=== PATIENT | female | born 1975 | race African-American/Black ===

== ENCOUNTER 2019-08-19 11:01 | Emergency (ER) | payer MEDICAID ==
[~2019-08-19] VITALS: Ht 170.2 cm; Wt 117.9 kg
[2019-08-19 11:16] VITALS: BP 141/78
[2019-08-19] MEDS ORDERED: IBUPROFEN 800 MG TAB PO ONE (11:45)
[2019-08-19] MEDS ORDERED: cefTRIAXone SOD 1,000 MG VL IM ONE (11:45)
== END 2019-08-19 12:17 | disposition home or self-care (01) ==
LOC: ER 11:01
DX: H66.91 Otitis media, unspecified, right ear (principal); F17.210 Nicotine dependence, cigarettes, uncomplicated
CPT/HCPCS: 96372; 99283; J0696

== ENCOUNTER 2022-01-12 10:14 | Emergency (ER) | payer MEDICAID, OTHER ==
[~2022-01-12] VITALS: Ht 172.7 cm; Wt 118.1 kg
[2022-01-12 10:30] VITALS: BP 168/92
[2022-01-12] MEDS ORDERED: KETOROLAC TROMETH 60MG/2ML VIAL IM ONE (13:45)
[2022-01-12] MEDS ORDERED: IBUP800T26 PO (16:39)
[2022-01-12] MEDS ORDERED: HYDR-4902 PO (16:39)
== END 2022-01-12 16:48 | disposition home or self-care (01) ==
LOC: ER 10:14
DX: S20.229A Contusion of unspecified back wall of thorax, initial encounter (principal); F17.210 Nicotine dependence, cigarettes, uncomplicated; W20.8XXA Other cause of strike by thrown, projected or falling object, initial encounter; Y93.89 Activity, other specified; Y92.89 Other specified places as the place of occurrence of the external cause; Y99.8 Other external cause status
CPT/HCPCS: 72070; 81025; 96372; 99283; J1885

== ENCOUNTER 2024-02-11 08:16 | Inpatient (IN) | payer SELFPAY ==
[~2024-02-11] VITALS: Ht 170.2 cm; Wt 120.0 kg
[~2024-02-11 08:16] MED LIST: HYDR-4902 PO; IBUP-1455 PO
--- NOTE | 2024-02-11 08:22 | ECG ---
[facility] Test Date: 2024-02-11 Test Time: 08:21:16 Pat Name: DOMENICO PACKER Department: ER Room: [address] [place] [address] Gender: F [employer] Glazier: VENUS : 1975 Requested By: JENNY JENKINS Order Number: [id number] Reading MD: Juni Torres Measurements Intervals [place] Rate: 103 P: 54 NV: 136 QRS: 99 QRSD: 85 T: 42 QT: 341 QTc: 447 Interpretive Statements Sinus tachycardia Borderline right axis deviation Low voltage, precordial leads Borderline T abnormalities, anterior leads Baseline wander in lead(s) II Electronically Signed On 02-11-2024 14:19:39 PST by Juni Torres Please click the below link to view image of tracing.
[2024-02-11] MEDS: ACETAMINOPHEN 500 MG TAB or CAP PO ONE (08:42)
[2024-02-11 08:54] LABS: Basophils # (auto) 0 10 ^3/uL (0-0.2); Basophils % (auto) 0.3 % (0.0-2.0); Eosinophils # (auto) 0 10 ^3/uL (0-0.8); Eosinophils % (auto) 0.4 % (0.0-7.0); Hematocrit 42.2 % (36.0-46.0); Hemoglobin 14.2 g/dL (12.2-16.2); Lymphocytes % (auto) 12.2 % (10.0-50.0); Mean Corpuscular Hemoglobin 32.3 pg (28.0-32.0); Mean Corpuscular Hgb Conc. 33.5 g/dL (32.0-36.0); Mean Corpuscular Volume 96.4 fL (80.0-100.0); Monocytes # (auto) 0.7 10 ^3/uL (0-1.3); Monocytes % (auto) 8.7 % (0.0-12.0); Neutrophils # (auto) 6.1 10 ^3/uL (1.6-8.6); Neutrophils % (auto) 78.4 % (37.0-80.0); Platelet Count (auto) 321 10^3/uL (140-450); Red Blood Cells 4.38 10^6/uL (4.0-5.20); Red Cell Distribution Width 13.1 % (11.8-14.3); White Blood Cell 7.8 10^3/uL (4.4-10.8)
[2024-02-11 09:11] LABS: Alanine Aminotransferase 17 U/L (7-40); Albumin 4.7 g/dL (3.2-4.8); Alkaline Phosphatase 84 U/L (46-116); Anion Gap 6 (5-15); Aspartate Aminotransferase 15 U/L (13-40); BUN/Creatinine Ratio 6.7 (10.0-20.0); Bilirubin, Total 0.7 mg/dL (0.2-1.0); Blood Urea Nitrogen 6 mg/dL (9-23); Calcium 9.8 mg/dL (8.7-10.4); Carbon Dioxide 25 mmol/L (20-31); Chloride 105 mmol/L (98-107); Glucose 122 mg/dL (74-106); Potassium 4.1 mmol/L (3.5-5.1); Sodium 136 mmol/L (136-145); Total Protein 7.6 g/dL (5.7-8.2)
--- NOTE | 2024-02-11 11:11 | DVH ---
CHEST RADIOGRAPH Indication: sob Technique: Single frontal view of the chest was obtained Comparison: None FINDINGS: Lines and Tubes: None Lungs: No focal consolidation. Pleura: No effusion. No pneumothorax. Cardiomediastinal contours: Unremarkable Bones: No acute osseous abnormality. IMPRESSION: 1. No acute cardiopulmonary disease.
--- NOTE | 2024-02-11 11:27 | ED.PDOC ---
History of Present Illness HPI Comments 48 y/o F, with a Hx of morbid obesity and tobacco use, presents with c/o chest pain, shortness of breath, and congestion, today. Patient endorses on sudden and unprovoked onset of symptoms, last night, with 1x incident of similar episode prior 1x week ago. She endorses no recent stressors, strenuous activities, sick contact, or additional relevant or pertinent Hx. She denies having any palpitations, cough, fever, chills, nausea, vomiting, or other associated symptoms or modifiers at this time. Chief Complaint: Chest Pain Time Seen by MD: 09:40 Primary Care Provider: NONE Reviewed Notes: Nurses Notes, Medications, Allergies Allergies: Coded Allergies: NO KNOWN ALLERGIES (Unverified , 04/20/14) Home Meds Active Scripts Hydrocodone-Acetaminophen (Hydrocodone Bitartrate/AC 5-325 mg) 1 Tab Tab, 1 TAB PO QID, #15 TAB Prov:RODRIGO LUKE PAC 01/12/22 Ibuprofen Micronized (Ibuprofen) 800 Mg Tab, 800 MG PO TID, #30 TAB Prov:RODRIGO LUKE PAC 01/12/22 Information Source: Patient Mode of Arrival: Ambulatory Severity: Moderate Timing: Hours Duration: Since onset Prehospital treatment: None Past Medical History Past Medical History (Other): morbid obesity 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 Pertinent SOFTWARE PROGRAMMER History Family History Family History: Unknown Social History Smoker: Cigarettes Alcohol: Denies ETOH Use Drugs: Denies Drug Use Lives In: Home EENTM: reports: others (congestion) Respiratory: reports: shortness of breath Cardiovascular: reports: chest pain All Other Systems: Reviewed and Negative (negative unless otherwise stated above or in HPI) Physical Exam General Appearance: Moderate Distress HEENT: Normal ENT Inspection, Pharynx Normal, TMs Normal Neck: Full Range of Motion, Non-Tender, Normal, Normal Inspection Respiratory: Accessory Muscle Use, Chest Non-Tender, Other (Coarse breath sounds) Cardiovascular: No Edema, No JVD, No Murmur, No Gallop, Normal Peripheral Pulses, Regular Rate/Rhythm Breast Exam: Deferred Gastrointestinal: No Organomegaly, Non Tender, No Pulsatile Mass, Normal Bowel Sounds, Soft Genitalia: Deferred Pelvic: Deferred Rectal: Deferred Extremities: No calf tenderness, Normal capillary refill, Normal inspection, Normal range of motion, Non-tender, No pedal edema Musculoskeletal : Apperance: Normal Neurologic: Alert, rate clerk passenger II-XII nml as Tested, No Motor Deficits, Normal Affect, Normal Mood, No Sensory Deficits Cerebellar Function: NOT DONE Reflexes: NOT DONE Skin: Dry, Normal Color, Warm Peripheral Pulses: 3+ Radial (R), 3+ Radial (L) Lymphatic: No Adenopathy Was a procedure done? Was a procedure done?: No EKG EKG : Pulse Rate (adult): 103 [place]: Normal Cardiac Rhythm: ST Block: None Hypertrophy: None ST: Normal Differential Dx Considerations may include: [place], PE, PNA, ACS, costochondritis, pericarditis, gastritis, viral syndrome, URI, bronchitis, covid19 X-Ray, Labs, Meds, VS Vital Signs Date Time Temp Pulse Resp B/P (MAP) Pulse Ox O2 Delivery O2 Flow Rate FiO2 02/11/24 11:36 99.5 02/11/24 11:28 99.5 92 14 137/88 (104) 90 99.5 02/11/24 11:27 103 02/11/24 08:42 101.0 02/11/24 08:21 103 02/11/24 08:17 101.0 85 24 141/84 (103) 95 Lab Test 02/11/24 10:00 02/11/24 08:29 Range/Units Troponin I High Sensitivity < 3 L < 3 L </=34 ng/L White Blood Count 7.8 4.4-10.8 10^3/uL Red Blood Count 4.38 4.0-5.20 10^6/uL Hemoglobin 14.2 12.2-16.2 g/dL Hematocrit 42.2 36.0-46.0 % Mean Corpuscular Volume 96.4 80.0-100.0 fL Mean Corpuscular Hemoglobin 32.3 H 28.0-32.0 pg Mean Corpuscular Hemoglobin Concent 33.5 32.0-36.0 g/dL Red Cell Distribution Width 13.1 11.8-14.3 % Platelet Count 321 140-450 10^3/uL Mean Platelet Volume 7.7 6.9-10.8 fL Neutrophils (%) (Auto) 78.4 37.0-80.0 % Lymphocytes (%) (Auto) 12.2 10.0-50.0 % Monocytes (%) (Auto) 8.7 0.0-12.0 % Eosinophils (%) (Auto) 0.4 0.0-7.0 % Basophils (%) (Auto) 0.3 0.0-2.0 % Neutrophils # (Auto) 6.1 1.6-8.6 10 ^3/uL Lymphocytes # (Auto) 1.0 0.4-5.4 10 ^3/uL Monocytes # (Auto) 0.7 0-1.3 10 ^3/uL Eosinophils # (Auto) 0 0-0.8 10 ^3/uL Basophils # (Auto) 0 0-0.2 10 ^3/uL Nucleated Red Blood Cells 0.0 % Sodium Level 136 136-145 mmol/L Potassium Level 4.1 3.5-5.1 mmol/L Chloride Level 105 98-107 mmol/L Carbon Dioxide Level 25 20-31 mmol/L Anion Gap 6 5-15 Blood Urea Nitrogen 6 L 9-23 mg/dL Creatinine 0.89 0.550-1.02 mg/dL Glomerular Filtration Rate Calc 80 >90 mL/min BUN/Creatinine Ratio 6.7 L 10.0-20.0 Serum Glucose 122 H 74-106 mg/dL Calcium Level 9.8 8.7-10.4 mg/dL Total Bilirubin 0.7 0.2-1.0 mg/dL Aspartate Amino Transferase (AST) 15 13-40 U/L Alanine Aminotransferase (ALT) 17 7-40 U/L Alkaline Phosphatase 84 46-116 U/L Total Protein 7.6 5.7-8.2 g/dL Albumin 4.7 3.2-4.8 g/dL Current Medications Medications (Trade) Dose Ordered Sig/Brody Route Start Time Stop Time Status Last Admin Acetaminophen (Tylenol Tablet Or Capsule) 1,000 mg ONCE ONCE PO 02/11/24 08:30 02/11/24 08:31 DC 02/11/24 08:42 Patient alert. Complaining of shortness a breath chest pain. Had to place her on oxygen. Cardiac marker within normal limits. Has fever. Chest x-ray reviewed does not show any acute process possibly early pneumonia. EKG reviewed does not show any acute changes. Possible pneumonitis. Was given Tylenol. Establish intravenous access. Was given Rocephin. Was given azithromycin. Was given steroid. Revision previous visit. Explained to the patient. Continue cardiac monitoring. Time of 1ST Reevaluation: 10:10 Reevaluation 1ST: Unchanged Patient Education/Counseling: Diagnosis, Treatment Family Education/Counseling: No Family Present Additional Information I reviewed the following notes from patient's past medical encounters: ED physician documentation on 01/12/2022 The following tests were ordered, and results were reviewed by me: CXR, EKG, troponin, CMP, CBC I reviewed and agreed with the following test results read by other providers: CXR I discussed treatment and results with medical personnel Departure 1 Departure Time of Disposition: 12:43 Impression: Primary Impression: Acute respiratory failure Qualified Codes: J96.01 - Acute respiratory failure with hypoxia Additional Impression: Pneumonitis Disposition: ADMITTED INPATIENT Admit to: Med Surg Condition: Guarded Critical Care Note Critical Care Time?: Yes (90 min-critical care time only) Stability Stability form required: No Heart Score Heart Score: Heart Score Response (Comments) Value History Slightly Suspicious 0 EKG Normal 0 Age 45-64 1 Risk Factors 1 or 2 risk factors 1 Troponin Normal limit 0 Total 2 I personally scribed for JENNY JENKINS MD ([email or web address]) on 02/11/24 at 11:27. Electronically submitted by Rich Marcelino ([email or web address]). JENNY JENKINS MD Feb 11, 2024 11:27
[2024-02-11] MEDS ORDERED: HYDROcodone-ACET 5/325MG TAB PO PRN (13:00)
[2024-02-11] MEDS ORDERED: hydrALAZINE HCL 20 MG/ML VL IV PRN (13:00)
[2024-02-11] MEDS ORDERED: MORPHINE SULFATE INJ 2 MG/ml SYRG IV PRN ×2 (13:00)
[2024-02-11] MEDS ORDERED: ACETAMINOPHEN 325 MG TAB PO PRN (13:00)
[2024-02-11] MEDS ORDERED: ONDANSETRON HCL 4 MG/2 ML VIAL IV PRN (13:00)
[2024-02-11] MEDS ORDERED: NITROGLYCERIN 0.4 MG SL TAB SL PRN (13:00)
--- NOTE | 2024-02-11 13:05 | DVHHP2 ---
History of Present Illness Reason for Visit: Chest pain History of Present Illness This 48-year-old female with past medical history of tobacco use and morbid obesity, presents in the ED with a chief complaint of chest pain. The patient reports chest pain is described as pressure pain non provoked, radiates to right arm, worse when taking deep breath and on palpation, and is associated with shortness of breath, cough, and congestion started last night as she was laying down. The patient reports recently recovered from flu-like symptoms a week ago. Denies history of CAD or MS. The patient states familiar history maternal grandparents with CAD. Past Medical History As stated in HPI Past Surgical History Family History Reviewed, non-contributory to the management of this case. Past Social History The patient lives at home, denies smoking, alcohol or illicit drugs abuse. Review of Systems Constitutional: Yes: Malaise; No: Fever, Chills, Sweats, Weakness, Other Eyes: No: Pain, Vision change, Conjunctivae inflammation, Eyelid inflammation, Other, Redness ENT: No: Ear pain, Ear discharge, Nose pain, Nose discharge, Nose congestion, Mouth pain, Mouth swelling, Throat pain, Throat swelling, Other Respiratory: Cough, Shortness of breath; No: Dry, SOB with excertion, Wheezing, Hemoptysis, Pleuritic Pain, Sputum, Wheezing, Other Cardiovascular: Chest Pain; No: Palpitations, Orthopnea, Paroxysmal Noc. Dyspnea, Edema, Lt Headedness, Other Gastrointestinal: No: Nausea, Vomiting, Abdominal Pain, Diarrhea, Constipation, Melena, Hematochezia, Other Genitourinary: No Dysuria, No Frequency, No Incontinence, No Hematuria, No Retention, No Other Musculoskeletal: No: other, neck pain, shoulder pain, arm pain, back pain, hand pain, leg pain, foot pain Skin: No: Rash, Lesions, Jaundice, Bruising, Other Neurological: No: Weakness, Numbness, Incoordination, Change in speech, Confusion, Seizures, Other Allergies: Coded Allergies: NO KNOWN ALLERGIES (Unverified , 04/20/14) Exam Vital Signs Vital Signs Date Time Temp Pulse Resp B/P (MAP) Pulse Ox O2 Delivery O2 Flow Rate FiO2 02/11/24 11:36 99.5 02/11/24 11:28 92 14 137/88 (104) 90 General Appearance: Alert, Oriented X3, Cooperative, mild distress HEENT: Atraumatic, PERRLA, EOMI, Mucous membr. moist/pink Respiratory: Clear to auscultation, Normal air movement Cardiovascular: Regular rate, Normal S1, Normal S2, No murmurs Abdominal: Normal bowel sounds, Soft, No tenderness, No hepatospenomegaly Extremities: No clubbing, No cyanosis, No edema, Normal pulses, No tenderness /swelling Skin: No rashes, No breakdown, No significant lesion Neuro: Normal gait, Normal speech, Normal tone Psych/Mental Status: Mental status NL Labs/Xrays Labs Test 02/11/24 10:00 02/11/24 08:29 Range/Units Troponin I High Sensitivity < 3 L </=34 ng/L White Blood Count 7.8 4.4-10.8 10^3/uL Red Blood Count 4.38 4.0-5.20 10^6/uL Hemoglobin 14.2 12.2-16.2 g/dL Hematocrit 42.2 36.0-46.0 % Mean Corpuscular Volume 96.4 80.0-100.0 fL Mean Corpuscular Hemoglobin 32.3 H 28.0-32.0 pg Mean Corpuscular Hemoglobin Concent 33.5 32.0-36.0 g/dL Red Cell Distribution Width 13.1 11.8-14.3 % Platelet Count 321 140-450 10^3/uL Mean Platelet Volume 7.7 6.9-10.8 fL Neutrophils (%) (Auto) 78.4 37.0-80.0 % Lymphocytes (%) (Auto) 12.2 10.0-50.0 % Monocytes (%) (Auto) 8.7 0.0-12.0 % Eosinophils (%) (Auto) 0.4 0.0-7.0 % Basophils (%) (Auto) 0.3 0.0-2.0 % Neutrophils # (Auto) 6.1 1.6-8.6 10 ^3/uL Lymphocytes # (Auto) 1.0 0.4-5.4 10 ^3/uL Monocytes # (Auto) 0.7 0-1.3 10 ^3/uL Eosinophils # (Auto) 0 0-0.8 10 ^3/uL Basophils # (Auto) 0 0-0.2 10 ^3/uL Nucleated Red Blood Cells 0.0 % Sodium Level 136 136-145 mmol/L Potassium Level 4.1 3.5-5.1 mmol/L Chloride Level 105 98-107 mmol/L Carbon Dioxide Level 25 20-31 mmol/L Anion Gap 6 5-15 Blood Urea Nitrogen 6 L 9-23 mg/dL Creatinine 0.89 0.550-1.02 mg/dL Glomerular Filtration Rate Calc 80 >90 mL/min BUN/Creatinine Ratio 6.7 L 10.0-20.0 Serum Glucose 122 H 74-106 mg/dL Calcium Level 9.8 8.7-10.4 mg/dL Total Bilirubin 0.7 0.2-1.0 mg/dL Aspartate Amino Transferase (AST) 15 13-40 U/L Alanine Aminotransferase (ALT) 17 7-40 U/L Alkaline Phosphatase 84 46-116 U/L Total Protein 7.6 5.7-8.2 g/dL Albumin 4.7 3.2-4.8 g/dL PROCEDURE(s): CXRP - CHEST PORTABLE REASON: sob ORDER NUMBER(s): [id number], ACCESSION NUMBER(s): [id number] CHEST RADIOGRAPH Indication: sob Technique: Single frontal view of the chest was obtained Comparison: None FINDINGS: Lines and Tubes: None Lungs: No focal consolidation. Pleura: No effusion. No pneumothorax. Cardiomediastinal contours: Unremarkable Bones: No acute osseous abnormality. IMPRESSION: 1. No acute cardiopulmonary disease. Assessment/Plan Assessment/Plan # Chest pain to rule out ACS Admit to telemetry unit Chest pain protocol Repeat EKG in a.m. Cardiology consult Echo asa, statins # morbidly obese Check lipid panel, A1c, TSH Lifestyle modification counseled with regular exercise, diet, and weight loss # positive SIRS # possible viral infection IV fluid Check Influenza a and B Check for covid Pancultures Monitor # Ex tobacco use Reports quit three months ago DVT prophylaxis Medical plan discussed with patient Plan discussed with: Patient My Orders Orders - DON MONTAÑO NURSE STAFF [facility] Procedure Category Date Status Time Admit ADMIT 02/11/24 Transmitted 12:48 Code Status CODE 02/11/24 Transmitted 12:48 Hydrocodone-Acet PHA 02/11/24 Logged 5/325mg Tab ([place] 13:00 Ondansetron Hcl PHA 02/11/24 Logged (Zofran) 13:00 Enoxaparin Sodium PHA 02/12/24 Logged (Lovenox) 10:00 Complete Blood Count LAB 02/12/24 Verified 04:00 Comprehensive LAB 02/12/24 Verified Metabolic Panel 04:00 Cardiac DIET 02/11/24 Transmitted Diet-2gna,Lofat,Lochol Lunch Echo 2d Mode Cardiac US 02/11/24 Logged DOP 12:48 Condition: Fair [facility] 02/11/24 In Process 12:48 Acetaminophen Tablet PHA 02/11/24 Logged (Tylenol Tablet) 13:00 Morphine Sulfate PHA 02/11/24 Logged Injection 13:00 Nitroglycerin PHA 02/11/24 Logged Sublingual (Ntrostat 13:00 Morphine Sulfate PHA 02/11/24 Logged Injection 13:00 Stat Ekg For Chest [facility] 02/11/24 In Process Pain 12:48 Notify Of Changes [facility] 02/11/24 In Process From Base 12:48 Skin Tanner For [facility] 02/11/24 In Process 24 Hours 12:48 Emergency Dysrhythmia [facility] 02/11/24 In Process Protocol 12:48 Rhythm Strips Once [facility] 02/11/24 In Process Every Shift 12:48 Oxygen By Nasal RT 02/11/24 Transmitted Cannula 12:48 * Cardiology Consult CONS 02/11/24 Transmitted 12:48 Electrocardigram EKG 02/12/24 Logged 04:00 Aspirin Tablet PHA 02/12/24 Logged 10:00 Aspirin Tablet PHA 02/11/24 Logged 13:00 Atorvastatin (Lipitor) PHA 02/11/24 Logged 22:00 Lipid Panel LAB 02/11/24 Logged 12:48 Hemoglobin A1c LAB 02/11/24 Logged 12:48 Thyroid Stimulating LAB 02/11/24 Logged Hormone 12:48 Urinalysis LAB 02/11/24 Logged 12:48 Erythrocyte LAB 02/11/24 Logged Sedimentation Rate 12:48 Rapid Influenza A&B LAB 02/11/24 Logged 12:55 Date of Service: Feb 11, 2024 Billing Provider: DON MONTAÑO Common Visit Codes: [id number] INP/OBS CARE (HIGH) DON MONTAÑO NURSE ST[facility]FF [facility] Feb 11, 2024 13:05
[2024-02-11 13:24] LABS: Triglycerides 132 mg/dL (< 150)
[2024-02-11 13:25] LABS: LDL Cholesterol 71 mg/dL (< 100)
[2024-02-11 13:26] LABS: Cholesterol 141 mg/dL (< 200); HDL Cholesterol 41 mg/dL (40-59)
[2024-02-11 13:52] LABS: Erythrocyte Sedimentation Rate 11 mm/hr (0-20)
[2024-02-11] MEDS: ASPirin 325 MG TAB PO ONE (15:16)
[2024-02-11] MEDS: SODIUM CHLORIDE 0.9% 1,000 ML IV SCH (16:05)
[2024-02-11 23:25] LABS: Urine Bacteria FEW /hpf (None Seen); Urine Blood Negative /uL (Negative); Urine Clarity Turbid (Clear); Urine Color Yellow (Yellow); Urine Mucus FEW (None Seen); Urine Protein, UAD Negative (Negative); Urine Specific Gravity 1.019 (1.001-1.035); Urine Urobilinogen Normal (Negative); Urine WBC 2 /hpf (0 - 5); Urine pH 5.5 (5.0-9.0)
[2024-02-11 23:31] VITALS: BP 126/67; PULSE 82; RESP 17; TEMP 98.9; O2SAT 95
[2024-02-11 23:58] LABS: COVID19 ANTIGEN SOFIA FIA NEGATIVE (NEGATIVE)
[2024-02-12] VITALS (7 sets, daily range): BP systolic 102–131; BP diastolic 62–81; PULSE 78–89; RESP 15–17; TEMP 97.7–98.9; O2SAT 95–99
[2024-02-12] LABS: Rapid Influenza B Negative (Negative)
[2024-02-12 00:07] LABS: Rapid Influenza A Positive (Negative)
[2024-02-12] MEDS: ATORVASTATIN 20 MG TAB PO SCH (00:08)
[2024-02-12] MEDS: ENOXAPARIN SOD 40 MG/0.4 ML SYRINGE SC SCH (09:14)
[2024-02-12] MEDS: ASPirin 81 mg TAB PO SCH (09:14)
[2024-02-12 09:16] LABS: Basophils # (auto) 0 10 ^3/uL (0-0.2); Basophils % (auto) 0.6 % (0.0-2.0); Eosinophils # (auto) 0.1 10 ^3/uL (0-0.8); Eosinophils % (auto) 1.3 % (0.0-7.0); Hematocrit 39.3 % (36.0-46.0); Lymphocytes # (auto) 2.1 10 ^3/uL (0.4-5.4); Lymphocytes % (auto) 41.4 % (10.0-50.0); Mean Corpuscular Hemoglobin 32.1 pg (28.0-32.0); Mean Corpuscular Hgb Conc. 33.2 g/dL (32.0-36.0); Mean Corpuscular Volume 96.6 fL (80.0-100.0); Monocytes # (auto) 0.6 10 ^3/uL (0-1.3); Monocytes % (auto) 10.9 % (0.0-12.0); Neutrophils # (auto) 2.4 10 ^3/uL (1.6-8.6); Neutrophils % (auto) 45.8 % (37.0-80.0); Nucleated Red Blood Cells % 0.1 %; Platelet Count (auto) 296 10^3/uL (140-450); Red Blood Cells 4.07 10^6/uL (4.0-5.20); Red Cell Distribution Width 13.2 % (11.8-14.3); White Blood Cell 5.2 10^3/uL (4.4-10.8)
[2024-02-12 09:24] LABS: Alanine Aminotransferase 17 U/L (7-40); Albumin 4.1 g/dL (3.2-4.8); Alkaline Phosphatase 68 U/L (46-116); Anion Gap 6 (5-15); Aspartate Aminotransferase 16 U/L (13-40); BUN/Creatinine Ratio 12.5 (10.0-20.0); Bilirubin, Total 0.4 mg/dL (0.2-1.0); Blood Urea Nitrogen 10 mg/dL (9-23); Calcium 9.3 mg/dL (8.7-10.4); Carbon Dioxide 26 mmol/L (20-31); Chloride 107 mmol/L (98-107); Potassium 3.9 mmol/L (3.5-5.1); Sodium 139 mmol/L (136-145); Total Protein 6.6 g/dL (5.7-8.2)
[2024-02-12 09:35] LABS: Glucose 166 mg/dL (74-106)
[2024-02-12 10:05] LABS: Hepatitis A Total Antibody Positive (Negative)
[2024-02-12 10:17] LABS: Hepatitis A Ab IgM Negative; Hepatitis B Core IgM Negative (Negative); Hepatitis B Surface Antigen Negative (Negative)
--- NOTE | 2024-02-12 12:07 | DVHSR ---
APPROVED REPORT EXAM: Two-dimensional and M-mode echocardiogram with Doppler and color Doppler. Blood Pressure: 114/71 mmHg INDICATION Chest Pain to rule out ACS RISK FACTORS Height: 67, Weight: 264 DIMENSIONS LVDd4.7 (3.8-5.7cm)LA (2D)4.5 (1.9-4.0cm)Aortic Root4.0 (2.0-3.7cm) LVDs3.4 (2.5-4.0cm)LA (MM) (1.9-4.0cm)Aortic Cusp Exc (1.5-2.0cm) EF (%) 55.0 (55-70%)Rt. Atrium (1.9-4.0cm)Asc. Aorta cm IVSd1.3 (0.7-1.1cm)RV (D) (1.8-2.4cm) PWd1.3 (0.7-1.1cm) Mitral Valve MitralMitral Stenosis E wave0.61m/sMV Mean GR.mmHg A wave0.67m/sMV Peak GR.mmHg E/A ratio0.92D MVAcm2 DECEL [id number] 1/2 [id number] IVRTmsDop MVA4.77cm2 Aortic Valve Aortic ValveAortic Stenosis V10.77m/Bernabe Mean GR.3mmHg V21.10m/Bernabe Peak GR.5mmHg LVOT Diameter2.4 (1.8-2.4cm)Doppler AVA3.17cm2 Pulmonic Valve V20.72m/s Tricuspid Valve TR Velocity2.37m/s [id number] LEFT VENTRICLE Normal left ventricular size and systolic function. There is mild concentric left ventricular hypert rophy. Ejection fraction is normal and is estimated at 60-65%. There is no regional wall motion abn ormalities. Diastolic function appears to be preserved. E to E prime ratio is in the normal range. RIGHT VENTRICLE Normal right ventricular size and systolic function. ATRIA Both atria are of normal size. MITRAL VALVE Normal structure and function. PULMONIC VALVE Normal structure and function. TRICUSPID VALVE Normal structure and function. PA systolic pressure is not adequately estimated. AORTIC VALVE Normal structure and function. Valve is trileaflet in morphology. GREAT VESSELS Normal aortic root size and proximal ascending aorta. PERICARDIAL EFFUSION No significant effusion. IVC is of normal size and collapses normally with inspiration. Conclusion Normal biventricular size and systolic function. Ejection fraction is estimated at 60-65%. There is mild concentric left ventricular hypertrophy. No significant valvular disease. PA systolic pressure isn't adequately estimated. No pericardial effusion.
--- NOTE | 2024-02-12 12:13 | DVHINCON2 ---
Date Seen: Feb 12, 2024 Referring Physician JOSH Turner Reason for Consultation Chest pain, rule out ACS History of Present Illness This is a 48-year-old female patient who presents to the emergency room with chief complaint of chest pain, generalized weakness and dry cough for two days. The patient came to the emergency room for further evaluation. She describes the chest pain as provoked by coughing, pressure-like and sharp in nature, intermittent, left-sided and nonradiating. She denies any associated symptoms. Initial twelve lead electrocardiogram reveals sinus tachycardia without any significant ST segment changes. Initial serial troponin levels have been nega tive. Significant past medical history includes tobacco use and obesity. The patient denies taking any medications at home and denies all other previous past medical history. She also denies any family history of cardiac problems. Of note, the patient has tested positive for influenza type A. Past Medical History Past medical history reviewed. No other significant than mentioned above. Past Surgical History section x3 Family History: Patient reports no known family medical history. Family History Family history reviewed. Social History Patient has a 30 pack-year history, quit smoking approximately three months ago Patient denies any illicit drug use Patient denies any alcohol use Allergies: Coded Allergies: NO KNOWN ALLERGIES (Unverified , 04/20/14) Home Meds Active Scripts Hydrocodone-Acetaminophen (Hydrocodone Bitartrate/AC 5-325 mg) 1 Tab Tab, 1 TAB PO QID, #15 TAB Prov:RODRIGO LUKE PAC 01/12/22 Ibuprofen Micronized (Ibuprofen) 800 Mg Tab, 800 MG PO TID, #30 TAB Prov:RODRIGO LUKE PAC 01/12/22 Current Medications Current Medications Medications (Trade) Dose Ordered Sig/Brody Route PRN Reason Start Time Stop Time Status Last Admin Acetaminophen/ Hydrocodone Bitart ([place] 5/325MG Tab) 1 tab Q4HP PRN PO MODERATE PAIN (4-6 PAIN SCALE) 02/11/24 13:00 Ondansetron HCl (Zofran) 4 mg Q4HP PRN IV NAUSEA / VOMITING 02/11/24 13:00 Enoxaparin Sodium (Lovenox) 40 mg DAILY SC 02/12/24 10:00 02/12/24 09:14 Acetaminophen (Tylenol Tablet) 650 mg Q6HP PRN PO PAIN SCALE 1-3 OR TEMP>100.4 02/11/24 13:00 Morphine Sulfate 2 mg Q4HPRN PRN IV SEVERE PAIN (7-10 PAIN SCALE) 02/11/24 13:00 Nitroglycerin (Ntrostat Sublingual) 0.4 mg Q5MINP PRN SL FOR CHEST PAIN 02/11/24 13:00 Morphine Sulfate 2 mg Q30M PRN IV FOR CHEST PAIN 02/11/24 13:00 Aspirin 81 mg DAILY PO 02/12/24 10:00 02/12/24 09:14 Atorvastatin Calcium (Lipitor) 40 mg HS PO 02/11/24 22:00 02/12/24 00:08 Sodium Chloride 1,000 ml @ 100 mls/hr Q10H IV 02/11/24 13:00 02/12/24 09:13 Hydralazine HCl (Apresoline Injection) 10 mg Q6HP PRN IV SBP>150 02/11/24 13:00 Review of Systems Constitutional: Generalized weakness Ears, Nose, & Throat: No symptom reported Eyes: No symptom reported Neurological: No symptoms reported Pulmonary/Respiratory: Cough Cardiovascular: Chest pain Gastrointestinal: No symptom reported Genitourinary: No symptom reported Musculoskeletal: No symptom reported Skin: No symptom reported Psychiatric: No symptom reported Endocrine: No symptom reported Hematologic/Lymphatic: No symptom reported Vital Signs Vital Signs Date Time Temp Pulse Resp B/P (MAP) Pulse Ox O2 Delivery O2 Flow Rate FiO2 02/12/24 09:00 98.7 86 17 131/81 (98) 99 98.7 02/12/24 00:59 Room Air* 0 21 Physical Exam General Appearance: Cooperative. Morbidly obese Pulmonary/Respiratory: Clear, bilateral breaths sounds. Cardiovascular/Chest: Regular rate and rhythm. Peripheral Pulses: 2+ Radial (R). 2+ Radial (L). 2+ Pedal (R). 2+ Pedal (L) Abdominal Exam: Normal bowel sounds. Ankle Exam: Negative ankle edema Lower extremities: Negative lower extremity edema Neuro/Mental Status: A/OX4, coherent. Thoughts/Psych: Normal thought pattern. Appropriate mood and affect. Good judgment and insight. Appearance: No acute distress. Skin Exam: Normal inspection. Normal color. Warm and dry. Labs/Diagnostic Data Labs Test 02/12/24 08:14 02/11/24 23:13 02/11/24 23:12 02/11/24 23:00 Range/Units White Blood Count 5.2 # 4.4-10.8 10^3/uL Red Blood Count 4.07 4.0-5.20 10^6/uL Hemoglobin 13.0 12.2-16.2 g/dL Hematocrit 39.3 36.0-46.0 % Mean Corpuscular Volume 96.6 80.0-100.0 fL Mean Corpuscular Hemoglobin 32.1 H 28.0-32.0 pg Mean Corpuscular Hemoglobin Concent 33.2 32.0-36.0 g/dL Red Cell Distribution Width 13.2 11.8-14.3 % Platelet Count 296 140-450 10^3/uL Mean Platelet Volume 7.9 6.9-10.8 fL Neutrophils (%) (Auto) 45.8 37.0-80.0 % Lymphocytes (%) (Auto) 41.4 10.0-50.0 % Monocytes (%) (Auto) 10.9 0.0-12.0 % Eosinophils (%) (Auto) 1.3 0.0-7.0 % Basophils (%) (Auto) 0.6 0.0-2.0 % Neutrophils # (Auto) 2.4 1.6-8.6 10 ^3/uL Lymphocytes # (Auto) 2.1 0.4-5.4 10 ^3/uL Monocytes # (Auto) 0.6 0-1.3 10 ^3/uL Eosinophils # (Auto) 0.1 0-0.8 10 ^3/uL Basophils # (Auto) 0 0-0.2 10 ^3/uL Nucleated Red Blood Cells 0.1 % Sodium Level 139 136-145 mmol/L Potassium Level 3.9 3.5-5.1 mmol/L Chloride Level 107 98-107 mmol/L Carbon Dioxide Level 26 20-31 mmol/L Anion Gap 6 5-15 Blood Urea Nitrogen 10 9-23 mg/dL Creatinine 0.80 0.550-1.02 mg/dL Glomerular Filtration Rate Calc 91 >90 mL/min BUN/Creatinine Ratio 12.5 10.0-20.0 Serum Glucose 166 H 74-106 mg/dL Calcium Level 9.3 8.7-10.4 mg/dL Total Bilirubin 0.4 0.2-1.0 mg/dL Aspartate Amino Transferase (AST) 16 13-40 U/L Alanine Aminotransferase (ALT) 17 7-40 U/L Alkaline Phosphatase 68 46-116 U/L Total Protein 6.6 5.7-8.2 g/dL Albumin 4.1 3.2-4.8 g/dL Hepatitis A IgM Antibody Negative Hepatitis A Antibody Total Positive H Negative Hepatitis B Surface Antigen Negative Negative Hepatitis B Core IgM Antibody Negative Negative Influenza Type A Antigen Positive Negative Influenza Type B Antigen Negative Negative SARS-CoV-2 Antigen (Rapid) Negative NEGATIVE Urine Color Yellow Yellow Urine Clarity Turbid H Clear Urine pH 5.5 5.0-9.0 Urine Specific [place] 1.019 1.001-1.035 Urine Protein Negative Negative Urine Ketones Negative Negative Urine Blood Negative Negative /uL Urine Nitrite Negative Negative Urine Bilirubin Negative Negative Urine Urobilinogen Normal Negative mg/dL Urine Leukocyte Esterase Negative Negative /uL Urine RBC 1 0 - 4 /hpf Urine WBC 2 0 - 5 /hpf Urine Squamous Epithelial Cells Few <5 /hpf Urine Bacteria Few H None Seen /hpf Urine Mucus Few None Seen Urine Glucose Normal Normal mg/dL Test 02/11/24 10:00 02/11/24 08:29 Range/Units Troponin I High Sensitivity < 3 L </=34 ng/L Erythrocyte Sedimentation Rate 11 0-20 mm/hr Hemoglobin A1c 6.2 H <5.7 % A1C Triglycerides Level 132 < 150 mg/dL Cholesterol Level 141 < 200 mg/dL LDL Cholesterol 71 < 100 mg/dL HDL Cholesterol 41 40-59 mg/dL Thyroid Stimulating Hormone (TSH) 0.91 0.55-4.78 uIU/mL Assessment Noncardiac chest pain, likely pleuritic Influenza type A positive Prediabetes, newly diagnosed Morbid obesity History of tobacco use Plan/Recommendation We will continue with the following plan/recommendations (Dr. Du): Transthoracic echocardiogram reveals EF 60-65% with mild concentric to left ventricular hypertrophy.Given the patient's clinical presentation, negative troponin level, and unremarkable twelve lead electrocardiogram, doubt ACS. Clinical presentation in keeping with pleuritic chest pain. There is no further inpatient cardiac workup indicated at this time. We will recommend for blood pressure control and for the patient to closely monitor blood pressure at home. The patient should follow up with Cardiology in the outpatient setting in 2-3 weeks post discharge for further workup if deemed necessary. Thank you for allowing us to care for this patient. Please call with any questions or concerns. Critical care time spent: 38 minutes This medical document was created using an electronic medical record system with voice recognition software and computerized dictation system. Although this document has been carefully reviewed, there might still be some phonetic and typographical errors. Occasional wrong-word or ``sound-alike substitutions may have occurred due to the inherent limitations of voice recognition software. These areas are purely typographical due to imperfections of the software programs and do not reflect any compromise in the patient's medical care. Please read the chart carefully and recognize, using context, where these substitutions have occurred. Plan discussed with: Patient Date of Service: Feb 12, 2024 Billing Provider: GABBI DU MD Cardiology Common Codes: 04192-[id number] INP/OBS CARE (High) Cardiology Consultation Codes: 84207-[id number] CONSULT <45MIN LUISITO TOBAR Feb 12, 2024 12:13
[2024-02-12] MEDS ORDERED: TAMIFLU PO (14:07)
--- NOTE | 2024-02-12 14:11 | DVHDS2 ---
Discharge Summary Date of Admission Feb 11, 2024 at 12:48 Date of Discharge: Feb 12, 2024 Admitting Diagnosis Chest pain Labs/Diagnostic Data: Laboratory Results Test 02/12/24 08:14 02/11/24 23:13 02/11/24 23:12 02/11/24 23:00 White Blood Count 5.2 10^3/uL (4.4-10.8) Red Blood Count 4.07 10^6/uL (4.0-5.20) Hemoglobin 13.0 g/dL (12.2-16.2) Hematocrit 39.3 % (36.0-46.0) Mean Corpuscular Volume 96.6 fL (80.0-100.0) Mean Corpuscular Hemoglobin 32.1 pg (28.0-32.0) Mean Corpuscular Hemoglobin Concent 33.2 g/dL (32.0-36.0) Red Cell Distribution Width 13.2 % (11.8-14.3) Platelet Count 296 10^3/uL (140-450) Mean Platelet Volume 7.9 fL (6.9-10.8) Neutrophils (%) (Auto) 45.8 % (37.0-80.0) Lymphocytes (%) (Auto) 41.4 % (10.0-50.0) Monocytes (%) (Auto) 10.9 % (0.0-12.0) Eosinophils (%) (Auto) 1.3 % (0.0-7.0) Basophils (%) (Auto) 0.6 % (0.0-2.0) Neutrophils # (Auto) 2.4 10 ^3/uL (1.6-8.6) Lymphocytes # (Auto) 2.1 10 ^3/uL (0.4-5.4) Monocytes # (Auto) 0.6 10 ^3/uL (0-1.3) Eosinophils # (Auto) 0.1 10 ^3/uL (0-0.8) Basophils # (Auto) 0 10 ^3/uL (0-0.2) Nucleated Red Blood Cells 0.1 % Sodium Level 139 mmol/L (136-145) Potassium Level 3.9 mmol/L (3.5-5.1) Chloride Level 107 mmol/L (98-107) Carbon Dioxide Level 26 mmol/L (20-31) Anion Gap 6 (5-15) Blood Urea Nitrogen 10 mg/dL (9-23) Creatinine 0.80 mg/dL (0.550-1.02) Glomerular Filtration Rate Calc 91 mL/min (>90) BUN/Creatinine Ratio 12.5 (10.0-20.0) Serum Glucose 166 mg/dL (74-106) Calcium Level 9.3 mg/dL (8.7-10.4) Total Bilirubin 0.4 mg/dL (0.2-1.0) Aspartate Amino Transferase (AST) 16 U/L (13-40) Alanine Aminotransferase (ALT) 17 U/L (7-40) Alkaline Phosphatase 68 U/L (46-116) Total Protein 6.6 g/dL (5.7-8.2) Albumin 4.1 g/dL (3.2-4.8) Hepatitis A IgM Antibody Negative Hepatitis A Antibody Total Positive (Negative) Hepatitis B Surface Antigen Negative (Negative) Hepatitis B Core IgM Antibody Negative (Negative) Influenza Type A Antigen Positive (Negative) Influenza Type B Antigen Negative (Negative) SARS-CoV-2 Antigen (Rapid) Negative (NEGATIVE) Urine Color Yellow (Yellow) Urine Clarity Turbid (Clear) Urine pH 5.5 (5.0-9.0) Urine Specific [place] 1.019 (1.001-1.035) Urine Protein Negative (Negative) Urine Ketones Negative (Negative) Urine Blood Negative /uL (Negative) Urine Nitrite Negative (Negative) Urine Bilirubin Negative (Negative) Urine Urobilinogen Normal mg/dL (Negative) Urine Leukocyte Esterase Negative /uL (Negative) Urine RBC 1 /hpf (0 - 4) Urine WBC 2 /hpf (0 - 5) Urine Squamous Epithelial Cells Few /hpf (<5) Urine Bacteria Few /hpf (None Seen) Urine Mucus Few (None Seen) Urine Glucose Normal mg/dL (Normal) Test 02/11/24 10:00 02/11/24 08:29 Troponin I High Sensitivity < 3 ng/L (</=34) Erythrocyte Sedimentation Rate 11 mm/hr (0-20) Hemoglobin A1c 6.2 % A1C (<5.7) Triglycerides Level 132 mg/dL (< 150) Cholesterol Level 141 mg/dL (< 200) LDL Cholesterol 71 mg/dL (< 100) HDL Cholesterol 41 mg/dL (40-59) Thyroid Stimulating Hormone (TSH) 0.91 uIU/mL (0.55-4.78) Other Laboratory Tests 02/12/24 08:14 Brief Hx & Hospital Course: History of Present Illness This 48-year-old female with past medical history of tobacco use and morbid obesity, presents in the ED with a chief complaint of chest pain. The patient reports chest pain is described as pressure pain non provoked, radiates to right arm, worse when taking deep breath and on palpation, and is associated with shortness of breath, cough, and congestion started last night as she was laying down. The patient reports recently recovered from flu-like symptoms a week ago. Denies history of CAD or CO. The patient states familiar history maternal grandparents with CAD. Course of hospitalization: Further discussion with the patient reveals that she had a fever upon arrival to the hospital. Patient tested positive for influenza A. Cardiology consultation was obtained with the patient undergoing echocardiogram as well as having negative troponins. Patient has been cleared for discharge. Patient was without leukocytosis, currently afebrile, and on room air. Chest x-ray was also negative for any infiltrates. Patient was instructed to obtain a PCP after being discharged for annual checkups. She will be prescribed Tamiflu 75 mg p.o. twice a day x5 days. She was instructed to stop smoking. Physical examination General: Alert and Oriented x3. No acute distress. Well-nourished. Obese Eyes: EOMI. Anicteric. HENT: Moist mucous membranes. Lungs: Clear to auscultation bilaterally. No accessory muscle use. Cardiovascular: Regular rate and rhythm. No murmur. No JVD. Abdomen: Soft, non-tender and non-distended. No palpable masses. Extremities: No edema. Non-tender. Skin: No rashes or lesions. Warm. Neurologic: No focal neurological deficits. CN II-XII grossly intact, but not individually tested. Psychiatric: Cooperative. Appropriate mood and affect. Total time spent with patient discussing and formulating plan of care: 35 minutes. This medical document was created using an electronic medical record system with [employer] system. Although this document has been carefully reviewed, there may still be some phonetic and typographical errors. These areas are purely typographical due to imperfections of the software programs, and do not reflect any compromise in the patient's medical care. Condition at Discharge: Fair Final Diagnosis/Problems List Chest pain secondary to influenza a Secondary Diagnosis: Obesity Nicotine dependence Discharge Disposition: Home Discharge Instruct/Medications Diet: Regular Activity: No Restrictions, As Tolerated Follow Up/Referral: Recommend to obtain PCP and perform annual follow up Medications: Tamiflu 75 mg p.o. twice a day x5 days 36 Discharge Statement: "Patient was advised to return to the ER or call 911 if any headaches, dizziness, shortness of breath, chest pain, abdominal pain, bleeding, fevers, or worsening of medical condition. Patient was counseled about treatment plan, medications, possible side effects, patientverbalized understanding. All questions were answered to the best of my ability. This discharge took greater then 30 minutes in planning, reviewing documentation, counseling the patient, and discussing with other team members." ASSESSMENT ASSESSMENT Assessment Chest pain secondary to influenza a Date of Service: Feb 12, 2024 Billing Provider: GAGAN JIMENEZ NP Common Visit Codes: 29979-FXR/OBS DISCH DAY >30min GAGAN JIMENEZ NP Feb 12, 2024 14:11
== END 2024-02-12 17:36 | disposition home or self-care (01) | DRG 193 ==
LOC: ER 08:16 → TELE 12:48 → TELE-WESTW 23:30
PROVIDERS: ADMIT Registered Nurse; ATTEND Nurse Practitioner Acute Care
DX: J10.1 Influenza due to other identified influenza virus with other respiratory manifestations (principal); J96.01 Acute respiratory failure with hypoxia; Z68.41 Body mass index [BMI] 40.0-44.9, adult; Z20.822 Contact with and (suspected) exposure to COVID-19; J98.4 Other disorders of lung; R73.03 Prediabetes; E66.01 Morbid (severe) obesity due to excess calories; F17.210 Nicotine dependence, cigarettes, uncomplicated; Z79.899 Other long term (current) drug therapy
CPT/HCPCS: 36415; 71045; 80053; 80061; 81001; 83036; 84443; 84484; 85025; 85652; 86705; 86708; 86709; 87040; 87086; 87340; 87426; 87804; 93005; 93306; G0378

== ENCOUNTER 2024-11-25 11:43 | Emergency (ER) | payer OTHER, SELFPAY ==
[~2024-11-25] VITALS: Ht 170.2 cm; Wt 122.0 kg
[~2024-11-25 11:43] MED LIST changes: +TAMIFLU PO
[2024-11-25] MEDS: KETOROLAC TROMETH 60MG/2ML VIAL IM ONE (13:09)
[2024-11-25] MEDS ORDERED: METH-1181 PO (13:40)
[2024-11-25] MEDS ORDERED: IBUP1TAB5 PO (13:40)
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
[2024-11-25 14:11] VITALS: BP 132/94; PULSE 78; RESP 16; TEMP 98.3; O2SAT 98
== END 2024-11-25 14:13 | disposition home or self-care (01) ==
LOC: ER 11:43
CPT/HCPCS: 96372 ×2; 99283; J1885 ×2